=== PATIENT | male | born 1955 | race Caucasian/White ===

== ENCOUNTER 2016-10-22 19:25 | Emergency (ER) | payer SELFPAY ==
[2016-10-22 19:47] LABS: #Basophils 0.1 thou/uL (0.0-0.2); #Eosinphils 0.3 thou/uL (0.0-0.7); #Lymphocytes 1.5 thou/uL (1.20-3.40); #Monocytes 0.9 thou/uL (0.11-0.59); #Neutrophils 6.4 thou/uL (1.40-6.50); %Basophils 1.3 % (0.0-1.0); %Eosinophils 2.9 % (0.0-10.0); %Lymphocytes 16.5 % (21.0-51.0); %Monocytes 10.1 % (0.0-10.0); %Neutrophils 69.3 % (42.0-75.0); Hemoglobin 15.6 g/dL (14.0-18.0); Mean Corpuscular HGB CONC 32.1 g/dL (32.0-36.0); Mean Corpuscular Hemoglobin 28.8 pg (27.0-31.0); Mean Corpuscular Volume 89.9 fl (80.0-94.0); Mean Platelet Volume 7.1 fL (7.4-10.4); Platelet Count 198 thou/uL (130-400); RBC Distribution Width 12.9 % (11.5-14.5); White Blood Cell (WBC) Count 9.3 thou/uL (4.8-10.8)
[2016-10-22 19:53] LABS: INR-International Normal Ratio 1.1; Prothrombin Time 13.9 SEC (12.0-14.7)
[2016-10-22 20:06] LABS: ALT (SGPT) 29 U/L (0-55); AST (SGOT) 25 U/L (5-34); Albumin 3.8 g/dL (3.5-5.0); Alkaline Phosphatase 93 U/L (40-150); Anion Gap 16 mmol/L (10-20); BUN (Urea Nitrogen) 21 mg/dL (8.4-25.7); Bilirubin, Total 1.1 mg/dL (0.2-1.2); Calc. Creatinine Clearance 0 mL/min (70-130); Calcium 8.7 mg/dL (7.8-10.44); Carbon Dioxide 22 mmol/L (22-29); Chloride 106 mmol/L (98-107); Estimated GFR-MDRD 36; Globulin 2.9 g/dL (2.4-3.5); Glucose 119 mg/dL (70-105); Potassium 4.1 mmol/L (3.5-5.1); Protein, Total 6.7 g/dL (6.0-8.3); Sodium 140 mmol/L (136-145)
[2016-10-22 20:07] LABS: Troponin I 0.052 ng/mL (< 0.028)
[2016-10-22] MEDS ORDERED: Labetalol HCl 100 MG/20 ML VIAL ONE (20:12)
[2016-10-22 21:05] LABS: Bilirubin Negative (Negative); Blood, Urine Trace (Negative); Glucose, Urine (Dipstick) Negative (Negative); Leukocyte Negative (Negative); Nitrite Negative (Negative); Protein, Urine (Dipstick) > or equal to 300 mg/dL (Neg-Trace); Urobilinogen 0.2 mg/dL (0.2-1.0); pH, Urine 5.5 (5.0-9.0)
[2016-10-22 21:09] LABS: Clarity SL HAZY (Clear)
--- NOTE | 2016-10-22 21:10 | CT ---
CT OF THE BRAIN WITHOUT CONTRAST 10/22/16 COMPARISON: None. HISTORY: Stroke. TECHNIQUE: Multiple contiguous axial images were obtained in a CT of the brain without contrast. FINDINGS: There is a 3.1 cm hemorrhage within the right basal ganglia. No significant midline shift or downwar d herniation is seen. There is no evidence of hydrocephalus or interventricular hemorrhage. No extra -axial fluid collection is seen. The calvarium and overlying soft tissues are unremarkable. The visualized paranasal sinuses and mast oid air cells are well aerated. IMPRESSION: Right basal ganglia hemorrhage. This is in a location most likely secondary to a hypertensive hemorr yasmeen. Dr. Sifuentes notified of the findings at 7:34 p.m. on 10/22/16. POS: [facility]
[2016-10-22] MEDS ORDERED: niCARdipine 20MG In NaCl 20 MG/200 ML BAG ONE (21:17)
[2016-10-22 21:19] LABS: RBC/HPF 0-3 HPF (0-3); Specific Gravity, Urine 1.022 (1.002-1.036); Squamous Epithelial 0-3 HPF (0-3); WBC/HPF 0-3 HPF (0-3)
[2016-10-22] MEDS ORDERED: Ondansetron HCl/PF 4 MG/2 ML Vial ONE (23:59)
== END 2016-10-22 22:00 | disposition short-term general hospital (02) ==
LOC: NAV ERS 19:25
DX: I62.9 Nontraumatic intracranial hemorrhage, unspecified (principal); I10 Essential (primary) hypertension
CPT/HCPCS: 36416; 70450; 80053; 81003; 81015; 82553; 84484; 85025; 85610; 93005; 96365; 96375; 96376; J2405

== ENCOUNTER 2017-06-06 13:55 | Outpatient (CLI) | payer OTHER ==
--- NOTE | 2017-06-06 16:21 | RAD ---
TWO VIEWS LEFT HAND 06/06/2017 HISTORY: Disability evaluation. Limited use of left hand secondary to recent CVA. FINDINGS: There is nonspecific mild foreshortening of the middle phalanx of the small finger which is probably developmental in origin. There is no fracture, dislocation, or other osseous abnormality involving the left hand. IMPRESSION: No acute osseous abnormality left hand. POS: [facility]
--- NOTE | 2017-06-06 17:14 | RAD ---
TWO VIEWS OF THE CHEST 06/06/2017 COMPARISON: 02/20/2011 HISTORY: Pneumonia, atrial fibrillation, hypertension, and congestive heart failure. FINDINGS: There is elevation of the right hemidiaphragm. There is no pneumothorax or pleural fluid. There is no focal consolidation or alveolar edema. There is multilevel anterior osteophyte formation within the thoracic spine. Cardiac silhouette is prominent. IMPRESSION: No acute findings. POS: [facility]
== END 2017-06-06 13:56 | disposition home or self-care (01) ==
LOC: NAV RAD 13:55
PROVIDERS: ATTEND Family Medicine
DX: I48.2 Chronic atrial fibrillation (principal); M19.90 Unspecified osteoarthritis, unspecified site
CPT/HCPCS: 71020